=== PATIENT | female | born 1975 | race Caucasian/White ===

== ENCOUNTER 2017-01-27 10:44 | Emergency (ER) | payer OTHER ==
--- NOTE | 2017-01-27 11:44 | UC ---
Complaint Female HPI - HPI Summary HPI Summary: Patient complaining of dysuria for the past 10 days, increased urgency, starting to back pain but denies fever. - History Of Current Complaint Stated Complaint: URINARY COMPLAINT Time Seen by Provider: 01/27/17 11:39 Hx Obtained From: Patient Hx Last Menstrual Period: AUG 2008, HAD UTERINE ABLATION Onset/Duration: Sudden Onset, Lasting Days Timing: Lasting Days Severity Initially: Mild Severity Currently: Moderate Character: Dull, Burning Aggravating Factor(s): Urination Associated Signs And Symptoms: Positive: Negative - Risk Factors Ectopic Risk Factor: Negative Ovarian Torsion Risk Factor: Negative - Allergies/Home Medications Allergies/Adverse Reactions: Allergies Allergy/AdvReac Type Severity Reaction Status Date / Time Sucralfate [From Carafate] Allergy Severe anaphalactic Verified 01/27/17 11:48 reaction Oxycodone [From Percocet] Allergy Intermediate Hallucinati Verified 01/27/17 11: 48 ons Zolpidem [From Ambien] Allergy Intermediate Hallucinati Verified 01/27/17 11:48 ons Adhesive Tape Allergy Unknown Verified 01/27/17 11:48 Reaction Details Esomeprazole [From Nexium] Allergy Unknown Verified 01/27/17 11:48 Reaction Details Kiwi Extract Allergy Unknown Verified 01/27/17 11:48 Reaction Details Latex Allergy Unknown Verified 01/27/17 11:48 Reaction Details Rabeprazole [From Aciphex] Allergy Unknown Verified 01/27/17 11:48 Reaction Details [place] Allergy Unknown Verified 01/27/17 11:48 Reaction Details Sulfa Antibiotics Allergy Unknown Verified 01/27/17 11:48 Reaction Details Amitriptyline AdvReac Intermediate suicidal Verified 08/26/16 10:21 tendancies Hydrocodone [From Vicodin] AdvReac Intermediate GI Upset Verified 08/26/16 10:21 NSAIDs AdvReac none Verified 08/26/16 10:21 Tramadol AdvReac Nausea Verified 08/26/16 10:21 PMH/Surg Hx/FS Hx/Imm Hx Previously Healthy: Yes Endocrine History Of: Denies: Diabetes Cardiovascular History Of: Denies: Cardiac Disorders, Hypertension, Pacemaker/ICD Respiratory History Of: Denies: Asthma GI/ History Of: Reports: Ulcer, Gall Bladder Disease Denies: Renal Disease Neurological History Of: Reports: Migraine Psychological History Of: Reports: Anxiety, Depression, Bipolar Disorder - Surgical History Surgical History: Yes Surgery Procedure, Year, and Place: uterine ablation, gastric bypass 2006, 4 c- sections, gallbladder, right wrist surgery, tubal ligation - Family History Known Family History: Positive: Cardiac Disease, Seizure Disorder - Social History Alcohol Use: None Alcohol Amount: Sober since Nov 24 2013 Substance Use Type: None Substance Use Comment - Amount & Last Used: quit 4 weeks ago Smoking Status (MU): Former Smoker Type: Cigarettes Amount Used/How Often: 1 cigarettes/day Length of Time of Smoking/Using Tobacco: 24 yrs Have You Smoked in the Last Year: Yes When Did the Patient Quit Smoking/Using Tobacco: JANUARY 2016 Household Exposure Type: Cigarettes Review of Systems Constitutional: Negative Skin: Negative Eyes: Negative ENT: Negative Respiratory: Negative Cardiovascular: Negative Gastrointestinal: Negative Genitourinary: Dysuria, Frequency, Urgency Motor: Negative Neurovascular: Negative Musculoskeletal: Negative Neurological: Negative Psychological: Negative All Other Systems Reviewed And Are Negative: Yes Physical Exam Triage Information Reviewed: Yes Appearance: Well-Appearing, Well-Nourished, Pain Distress Vital Signs Reviewed: Yes Eye Exam: Normal Eyes: Positive: Conjunctiva Clear ENT Exam: Normal ENT: Positive: Normal ENT inspection, Hearing grossly normal, Pharynx normal, TMs normal Dental Exam: Normal Neck exam: Normal Neck: Positive: Supple, Nontender, No Lymphadenopathy Respiratory Exam: Normal Respiratory: Positive: Chest non-tender, Lungs clear, Normal breath sounds Cardiovascular Exam: Normal Cardiovascular: Positive: RRR, No Murmur, Pulses Normal Abdominal Exam: Other - lower abdominal tenderness, Abdomen Description: Positive: No Organomegaly, Soft, CVA Tenderness (R), CVA Tenderness (L) Bowel Sounds: Positive: Present Musculoskeletal Exam: Normal Musculoskeletal: Positive: Strength Intact, ROM Intact, No Edema Neurological Exam: Normal Neurological: Positive: Alert, Muscle Tone Normal Psychological Exam: Normal Skin Exam: Normal Complaint Female Dx - Course Course Of Treatment: hx obtained, exam performed, meds reviewed UA obtained, pos for nitrated and leuks, treated with keflex. - Differential Dx/Diagnosis Differential Diagnosis/HQI/PQRI: Sexually Transmitted Disease, Ureteral Stone, Urinary Tract Infection Provider Diagnoses: Hx obtained, exam performed, medications reviewed, UA pos, culture sent, treated with keflex, educated on symtpom relief. Discharge - Discharge Plan Condition: Stable Disposition: HOME Prescriptions: Cephalexin CAP* [Keflex CAP*] 500 mg PO BID #14 cap Patient Education Materials: Urinary Tract Infection in Women (ED) Referrals: Luis RICHEY,Phill Adame [Primary Care Provider] - Additional Instructions: take the medication as prescribed. Continue with increased fluid intake. You may resume your azo as needed for the next 2 days. then stop to make sure the antibiotic is treating the infection adequately. FOllow up with any worsening symptoms, fever, increased back pain.
[2017-01-27 11:53] VITALS: BP 124/76
== END 2017-01-27 12:18 | disposition home or self-care (01) ==
LOC: UCCORT 10:44
DX: N39.0 Urinary tract infection, site not specified (principal); Z88.5 Allergy status to narcotic agent; Z88.6 Allergy status to analgesic agent; Z88.2 Allergy status to sulfonamides; Z88.8 Allergy status to other drugs, medicaments and biological substances; Z87.891 Personal history of nicotine dependence
CPT/HCPCS: 87086; 99212; G0463

== ENCOUNTER 2017-03-07 14:42 | Emergency (ER) | payer OTHER ==
[2017-03-07 15:45] VITALS: BP 115/70
--- NOTE | 2017-03-07 16:36 | UC ---
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 Hx Last Menstrual Period: AUG 2008, HAD UTERINE ABLATION Onset/Duration: Gradual Onset, Lasting Weeks, Worse Since - TODAY Severity Initially: Moderate Severity Currently: Mild Pain Intensity: 0 Pain Scale Used: 0-10 Numeric Location of Injury: Conjunctiva Character: Dull Aggravating Factor(s): Nothing Alleviating Factor(s): Nothing Associated Signs And Symptoms: Positive: Drainage (Purulent) - Risk Factors Penetrating Injury Risk Factor: Negative Acute Glaucoma Risk Factors: Negative Optic Artery Occlusion Risk Factors: Negative - Allergies/Home Medications Allergies/Adverse Reactions: Allergies Allergy/AdvReac Type Severity Reaction Status Date / Time Sucralfate [From Carafate] Allergy Severe anaphalactic Verified 03/07/17 15:45 reaction Oxycodone [From Percocet] Allergy Intermediate Hallucinati Verified 03/07/17 15: 45 ons Zolpidem [From Ambien] Allergy Intermediate Hallucinati Verified 03/07/17 15:45 ons Adhesive Tape Allergy Unknown Verified 03/07/17 15:45 Reaction Details Esomeprazole [From Nexium] Allergy Unknown Verified 03/07/17 15:45 Reaction Details Kiwi Extract Allergy Unknown Verified 03/07/17 15:45 Reaction Details Latex Allergy Unknown Verified 03/07/17 15:45 Reaction Details Rabeprazole [From Aciphex] Allergy Unknown Verified 03/07/17 15:45 Reaction Details [place] Allergy Unknown Verified 03/07/17 15:45 Reaction Details Sulfa Antibiotics Allergy Unknown Verified 03/07/17 15:45 Reaction Details Amitriptyline AdvReac Intermediate suicidal Verified 03/07/17 15:45 tendancies Hydrocodone [From Vicodin] AdvReac Intermediate GI Upset Verified 03/07/17 15:45 NSAIDs AdvReac none Verified 03/07/17 15:45 Tramadol AdvReac Nausea Verified 03/07/17 15:45 Home Medications: Home Medications Acamprosate Calcium [Acamprosate Calcium Dr] 333 mg PO TID 03/07/17 [History Confirmed 03/07/17] Acyclovir TAB* [Zovirax TAB*] 400 mg PO BID 03/07/17 [History Confirmed 03/07/17 ] Artificial Tear OPHTH.OINT* [Lacrilube OINT*] 1 applic BOTH EYES Q2H 03/07/17 [ History Confirmed 03/07/17] Biotin 5,000 mcg PO BID 03/07/17 [History Confirmed 03/07/17] Bupropion XL* [Wellbutrin XL *] 150 mg PO DAILY 03/07/17 [History Confirmed ] Calcium Carbonate-Cholecalcife [Calcium 600 + D 600-200 mg-Unit] 1 tab PO DAILY 03/07/17 [History Confirmed 03/07/17] Cholecalciferol [Vitamin D] 2,000 unit PO DAILY 03/07/17 [History Confirmed ] Cyclobenzaprine TAB* [Flexeril 10 MG TAB*] 10 mg PO TID PRN 03/07/17 [History Confirmed 03/07/17] Evening [place] Oil [Evening [place] Oil 500 mg] 500 mg PO TID 03/07/17 [ History Confirmed 03/07/17] Ferrous Sulfate TAB* 325 mg PO TID 03/07/17 [History Confirmed 03/07/17] Fluticasone NASAL SPRAY 50MCG* [Flonase NASAL SPRAY 50MCG*] 2 spray BOTH NARES DAILY 03/07/17 [History Confirmed 03/07/17] Gabapentin CAP(*) [Neurontin 300 CAP(*)] 600 mg PO QID 03/07/17 [History Confirmed 03/07/17] Lactobacillus [Probiotic Acidophilus] 1 cap PO DAILY 03/07/17 [History Confirmed 03/07/17] [place] Carbonate TAB* 900 mg PO BID 03/07/17 [History Confirmed 03/07/17] Loratadine 10 mg PO BEDTIME 03/07/17 [History Confirmed 03/07/17] Meloxicam [Mobic] 15 mg PO DAILY 03/07/17 [History Confirmed 03/07/17] Metformin ER (NF) [Glucophage ER 750 MG TAB (NF)] 750 mg PO DAILY 03/07/17 [ History Confirmed 03/07/17] Methocarbamol TAB* [Robaxin TAB*] 750 mg PO TID 03/07/17 [History Confirmed ] Multivitamins/Minerals TAB* [Thera M Plus TAB*] 1 tab PO DAILY 03/07/17 [ History Confirmed 03/07/17] Paliperidone [Paliperidone ER] 3 mg PO DAILY 03/07/17 [History Confirmed ] Ranitidine HCl 150 mg PO BID 03/07/17 [History Confirmed 03/07/17] lamoTRIgine TAB(*) [LaMICtal TAB(*)] 100 mg PO BID 03/07/17 [History Confirmed 03/07/17] PMH/Surg Hx/FS Hx/Imm Hx Previously Healthy: Yes Endocrine History Of: Denies: Diabetes Cardiovascular History Of: Denies: Cardiac Disorders, Hypertension, Pacemaker/ICD Respiratory History Of: Denies: Asthma GI/ History Of: Reports: Ulcer, Gall Bladder Disease Denies: Renal Disease Neurological History Of: Reports: Migraine Psychological History Of: Reports: Anxiety, Depression, Bipolar Disorder - Surgical History Surgical History: Yes Surgery Procedure, Year, and Place: uterine ablation, gastric bypass 2006, 4 c- sections, gallbladder, right wrist surgery, tubal ligation - Family History Known Family History: Positive: Cardiac Disease, Seizure Disorder - Social History Alcohol Use: None Alcohol Amount: Sober since Nov 24 2013 Substance Use Type: None Substance Use Comment - Amount & Last Used: quit 4 weeks ago Smoking Status (MU): Heavy Every Day Tobacco Smoker Type: Cigarettes Amount Used/How Often: 7 cigs per day Length of Time of Smoking/Using Tobacco: 24 yrs Have You Smoked in the Last Year: Yes When Did the Patient Quit Smoking/Using Tobacco: JANUARY 2016 Household Exposure Type: Cigarettes Review of Systems Constitutional: Negative Skin: Negative Eyes: Negative ENT: Nasal Discharge Respiratory: Cough Cardiovascular: Negative Gastrointestinal: Negative Genitourinary: Negative Motor: Negative Neurovascular: Negative Musculoskeletal: Negative Neurological: Negative Psychological: Negative All Other Systems Reviewed And Are Negative: Yes Physical Exam Triage Information Reviewed: Yes Appearance: Well-Appearing, No Pain Distress, Well-Nourished Vital Signs: Initial Vital Signs Temp 98.7 F 03/07/17 15:42 Pulse 82 03/07/17 15:42 Resp 16 03/07/17 15:42 BP 115/70 03/07/17 15:42 Pulse Ox 100 03/07/17 15:42 Vital Signs Reviewed: Yes Eyes: Positive: Discharge ENT: Positive: Normal ENT inspection, Hearing grossly normal, Pharynx normal, Nasal congestion, TMs normal Dental Exam: Normal Neck exam: Normal Neck: Positive: Supple, Nontender, No Lymphadenopathy Respiratory Exam: Normal Respiratory: Positive: Chest non-tender, Lungs clear, Normal breath sounds, No respiratory distress, No accessory muscle use Cardiovascular Exam: Normal Cardiovascular: Positive: RRR, No Murmur, Pulses Normal Abdominal Exam: Normal Abdomen Description: Positive: Nontender, No Organomegaly Musculoskeletal Exam: Normal Musculoskeletal: Positive: Strength Intact, ROM Intact Neurological Exam: Normal Psychological Exam: Normal Psychological: Positive: Normal Response To Family Skin Exam: Normal Eye Complaint Course/Dx - Differential Dx/Diagnosis Differential Diagnosis/HQI/PQRI: Conjunctivitis, Other - SINUSITIS Provider Diagnoses: UPPER RESPIRATORY INFECTION. LEFT CONJUNCTIVITIS Discharge - Discharge Plan Condition: Stable Disposition: HOME Prescriptions: Tobramycin 0.3% OPHTH.SHANE* 1 drop LEFT EYE Q4H #1 btl Patient Education Materials: Upper Respiratory Infection (ED), Conjunctivitis ( ED) Referrals: Luis RICHEY,Phill Adame [Primary Care Provider] -
== END 2017-03-07 16:11 | disposition home or self-care (01) ==
LOC: UCCORT 14:42
DX: H10.32 Unspecified acute conjunctivitis, left eye (principal); J06.9 Acute upper respiratory infection, unspecified; F41.8 Other specified anxiety disorders; F31.9 Bipolar disorder, unspecified; Z98.84 Bariatric surgery status; Z90.49 Acquired absence of other specified parts of digestive tract; Z88.6 Allergy status to analgesic agent; Z88.5 Allergy status to narcotic agent; Z88.2 Allergy status to sulfonamides; Z87.891 Personal history of nicotine dependence
CPT/HCPCS: 99212; G0463

== ENCOUNTER 2017-09-18 19:16 | Emergency (ER) | payer MEDICARE, MEDICAID ==
[2017-09-18 19:43] VITALS: BP 110/69
[2017-09-18] MEDS: Tetan/Diph/Pertus SYR(Tdap)* 0.5 ML SYR(BOOSTRIX) use SYR IM ONE (20:07)
--- NOTE | 2017-09-18 20:23 | UC ---
Laceration HPI - HPI Summary HPI Summary: Pt present with c/o laceration to left lateral base of thumb. P t was using exacto knife and cut left thumb - History Of Current Complaint Chief Complaint: UCLaceration Stated Complaint: LEFT THUMB LAC Time Seen by Provider: 09/18/17 19:54 Hx Obtained From: Patient Hx Last Menstrual Period: 2007 Laceration Location: Finger - left lateral thumb Mechanism Of Injury: Sharp Trauma Onset/Duration: Sudden Onset Severity: Mild Aggravating Factors: Nothing - Allergies/Home Medications Allergies/Adverse Reactions: Allergies Allergy/AdvReac Type Severity Reaction Status Date / Time Sucralfate [From Carafate] Allergy Severe anaphalactic Verified 09/18/17 19:36 reaction Oxycodone [From Percocet] Allergy Intermediate Hallucinati Verified 09/18/17 19: 36 ons Zolpidem [From Ambien] Allergy Intermediate Hallucinati Verified 09/18/17 19:36 ons Adhesive Tape Allergy Unknown Verified 09/18/17 19:36 Reaction Details Esomeprazole [From Nexium] Allergy Unknown Verified 09/18/17 19:36 Reaction Details Kiwi Extract Allergy Unknown Verified 09/18/17 19:36 Reaction Details Latex Allergy Unknown Verified 09/18/17 19:36 Reaction Details Rabeprazole [From Aciphex] Allergy Unknown Verified 09/18/17 19:36 Reaction Details [place] Allergy Unknown Verified 09/18/17 19:36 Reaction Details Sulfa Antibiotics Allergy Unknown Verified 09/18/17 19:36 Reaction Details Amitriptyline AdvReac Intermediate suicidal Verified 09/18/17 19:36 tendancies Hydrocodone [From Vicodin] AdvReac Intermediate GI Upset Verified 09/18/17 19:36 NSAIDs AdvReac none Verified 09/18/17 19:36 Tramadol AdvReac Nausea Verified 09/18/17 19:36 Home Medications: Home Medications Caffeine-Magnesium Salicylate [Diurex 50-162.5 mg] 2 tab PO BID 09/18/17 [ History Confirmed 09/18/17] PMH/Surg Hx/FS Hx/Imm Hx Previously Healthy: Yes - Surgical History Surgical History: Yes Surgery Procedure, Year, and Place: uterine ablation, gastric bypass 2006, 4 c- sections, gallbladder, right wrist surgery, tubal ligation - Family History Known Family History: Positive: Cardiac Disease, Seizure Disorder - Social History Occupation: Employed Full-time Lives: With Family Alcohol Use: None Alcohol Amount: Sober since Nov 24 2013 Substance Use Type: Cocaine Substance Use Comment - Amount & Last Used: "quit" last used 08/27/17 Smoking Status (MU): Heavy Every Day Tobacco Smoker Type: Cigarettes Amount Used/How Often: 1 PPD Length of Time of Smoking/Using Tobacco: Since Age 14 Have You Smoked in the Last Year: Yes When Did the Patient Quit Smoking/Using Tobacco: JANUARY 2016 Household Exposure Type: Cigarettes - Immunization History Most Recent Influenza Vaccination: Not the Season Most Recent Tetanus Shot: "I don't remember." Review of Systems Constitutional: Negative Skin: Other - laceration left lateral thumb Eyes: Negative ENT: Negative Respiratory: Negative Cardiovascular: Negative Gastrointestinal: Negative Genitourinary: Negative Motor: Negative Neurovascular: Negative Musculoskeletal: Negative Neurological: Negative Psychological: Negative Is Patient Immunocompromised?: No All Other Systems Reviewed And Are Negative: Yes Physical Exam Triage Information Reviewed: Yes Appearance: Well-Appearing Vital Signs: Initial Vital Signs Temp 97.7 F 09/18/17 19:35 Pulse 92 09/18/17 19:35 Resp 16 09/18/17 19:35 BP 110/69 09/18/17 19:35 Pulse Ox 100 09/18/17 19:35 Eye Exam: Normal ENT Exam: Normal Neck exam: Normal Respiratory Exam: Normal Cardiovascular Exam: Normal Musculoskeletal Exam: Normal Neurological Exam: Normal Psychological Exam: Normal Skin Exam: Other - laceration, bleeding stopped in left lateral thumb Laceration Course/Dx - Course/Dx Course Of Treatment: I offered to repair laceration with skin adhesive and pt refused. - Differential Dx - Laceration/Wound Differental Diagnoses: Laceration Provider Diagnoses: laceration, no suturing needed Discharge - Discharge Plan Condition: Stable Disposition: HOME Patient Education Materials: Laceration (ED) Referrals: Luis RICHEY,Phill Adame [Primary Care Provider] - If Needed
== END 2017-09-18 20:37 | disposition home or self-care (01) ==
LOC: UCCORT 19:16
DX: S61.012A Laceration without foreign body of left thumb without damage to nail, initial encounter (principal); W26.0XXA Contact with knife, initial encounter; Z91.048 Other nonmedicinal substance allergy status; Z88.8 Allergy status to other drugs, medicaments and biological substances; Z88.2 Allergy status to sulfonamides; Z88.6 Allergy status to analgesic agent; Z91.040 Latex allergy status
CPT/HCPCS: 90471; 90715; 99212; G0463

== ENCOUNTER 2017-10-18 20:05 | Emergency (ER) | payer MEDICARE, MEDICAID ==
--- NOTE | 2017-10-18 20:15 | UC ---
Upper Extremity HPI - HPI Summary HPI Summary: 42 year old female presents with complains of right hand pain after she punched a wall 2 weeks ago. - History of Current Complaint Stated Complaint: RIGHT HAND INJURY Time Seen by Provider: 10/18/17 20:14 Hx Obtained From: Patient Hx Last Menstrual Period: 2007 Onset/Duration: Sudden Onset Severity Initially: Moderate Severity Currently: Moderate Pain Scale Used: 0-10 Numeric - 7 Character: Sharp, Throbbing Aggravating Factor(s): Movement, Lifting, Flexion, Extension - Allergies/Home Medications Allergies/Adverse Reactions: Allergies Allergy/AdvReac Type Severity Reaction Status Date / Time Sucralfate [From Carafate] Allergy Severe anaphalactic Verified 10/18/17 20:33 reaction Oxycodone [From Percocet] Allergy Intermediate Hallucinati Verified 10/18/17 20: 33 ons Zolpidem [From Ambien] Allergy Intermediate Hallucinati Verified 10/18/17 20:33 ons Adhesive Tape Allergy Unknown Verified 10/18/17 20:33 Reaction Details Esomeprazole [From Nexium] Allergy Unknown Verified 10/18/17 20:33 Reaction Details Kiwi Extract Allergy Unknown Verified 10/18/17 20:33 Reaction Details Latex Allergy Unknown Verified 10/18/17 20:33 Reaction Details Rabeprazole [From Aciphex] Allergy Unknown Verified 10/18/17 20:33 Reaction Details [place] Allergy Unknown Verified 10/18/17 20:33 Reaction Details Sulfa Antibiotics Allergy Unknown Verified 10/18/17 20:33 Reaction Details Amitriptyline AdvReac Intermediate suicidal Verified 10/18/17 20:33 tendancies Hydrocodone [From Vicodin] AdvReac Intermediate GI Upset Verified 10/18/17 20:33 NSAIDs AdvReac none Verified 10/18/17 20:33 Tramadol AdvReac Nausea Verified 10/18/17 20:33 Home Medications: Home Medications Ondansetron TAB* [Zofran 4 MG Tab*] 4 mg PO Q6H PRN 10/18/17 [History Confirmed 10/18/17] clonazePAM TAB(*) [KlonoPIN TAB(*)] 1 mg PO BID 10/18/17 [History Confirmed ] PMH/Surg Hx/FS Hx/Imm Hx Previously Healthy: Yes - Surgical History Surgical History: Yes Surgery Procedure, Year, and Place: uterine ablation, gastric bypass 2006, 4 c- sections, gallbladder, right wrist surgery, tubal ligation - Family History Known Family History: Positive: Cardiac Disease, Seizure Disorder - Social History Alcohol Use: None Alcohol Amount: Sober since Nov 24 2013 Substance Use Type: Cocaine Substance Use Comment - Amount & Last Used: "quit" last used 08/27/17 Smoking Status (MU): Heavy Every Day Tobacco Smoker Type: Cigarettes Amount Used/How Often: 1 PPD Length of Time of Smoking/Using Tobacco: Since Age 14 Have You Smoked in the Last Year: Yes When Did the Patient Quit Smoking/Using Tobacco: JANUARY 2016 Household Exposure Type: Cigarettes - Immunization History Most Recent Influenza Vaccination: Not the 2016/2017 Season Most Recent Tetanus Shot: "I don't remember." Review of Systems Constitutional: Negative Skin: Negative Eyes: Negative ENT: Negative Respiratory: Negative Cardiovascular: Negative Gastrointestinal: Negative Genitourinary: Negative Motor: Negative Neurovascular: Negative Musculoskeletal: Other: - right hand sprain right 5th metacarpal pain Neurological: Negative Psychological: Negative All Other Systems Reviewed And Are Negative: Yes Physical Exam Triage Information Reviewed: Yes Vital Signs Reviewed: Yes Eye Exam: Normal ENT Exam: Normal Dental Exam: Normal Neck exam: Normal Neck: Positive: 1 Respiratory Exam: Normal Cardiovascular Exam: Normal Abdominal Exam: Normal Bowel Sounds: Positive: Present Musculoskeletal: Positive: Other: - right 5th metacarpal pain right hand sprain Neurological Exam: Normal Psychological Exam: Normal Skin Exam: Normal Upper Extremity Course/Dx - Differential Dx/Diagnosis Provider Diagnoses: right hand sprain/contusion. right 5th metacarpal pain Discharge - Discharge Plan Condition: Stable Disposition: HOME Patient Education Materials: Hand Sprain (ED), Contusion in Adults (ED) Referrals: Phill Sloan [Primary Care Provider] -
[2017-10-18 20:33] VITALS: BP 117/80
--- NOTE | 2017-10-18 20:50 | RAD ---
INDICATION: Right hand injury. TECHNIQUE: 4 views of the right hand were obtained. FINDINGS: The bones are in normal alignment. No fracture is seen. Joint spaces appear maintained. IMPRESSION: NO EVIDENCE FOR FRACTURE.
== END 2017-10-18 21:00 | disposition home or self-care (01) ==
LOC: UCCORT 20:05
DX: S63.91XA Sprain of unspecified part of right wrist and hand, initial encounter (principal); W22.09XA Striking against other stationary object, initial encounter; Y92.9 Unspecified place or not applicable; Z88.8 Allergy status to other drugs, medicaments and biological substances; Z88.5 Allergy status to narcotic agent; Z88.2 Allergy status to sulfonamides; Z88.6 Allergy status to analgesic agent
CPT/HCPCS: 99213; G0463

== ENCOUNTER 2017-12-31 12:44 | Emergency (ER) | payer MEDICARE, MEDICAID | END 2017-12-31 14:54 | disposition left against medical advice (07) | LOC: UCCORT 12:44 | DX: R53.83 Other fatigue (principal); Z53.21 Procedure and treatment not carried out due to patient leaving prior to being seen by health care provider ==

== ENCOUNTER 2018-01-04 10:46 | Emergency (ER) | payer MEDICARE, MEDICAID | END 2018-01-04 14:31 | disposition left against medical advice (07) | LOC: UCCORT 10:46 | DX: R11.0 Nausea (principal); R52 Pain, unspecified; Z53.21 Procedure and treatment not carried out due to patient leaving prior to being seen by health care provider ==

== ENCOUNTER 2018-01-07 18:41 | Emergency (ER) | payer MEDICARE, MEDICAID | END 2018-01-07 21:03 | disposition left against medical advice (07) | LOC: UCCORT 18:41 | DX: R11.2 Nausea with vomiting, unspecified (principal); Z53.21 Procedure and treatment not carried out due to patient leaving prior to being seen by health care provider ==

== ENCOUNTER 2018-01-08 09:29 | Emergency (ER) | payer MEDICARE, MEDICAID ==
[2018-01-08 11:00] VITALS: BP 110/71
--- NOTE | 2018-01-08 11:48 | UC ---
Abdominal Pain Female HPI - HPI Summary HPI Summary: abdominal pain x 10 days + nausea and vomiting fever, chills , body aches no cough , no runny nose, no sore throat no urinary sx - History of Current Complaint Chief Complaint: UCGeneralIllness Stated Complaint: FEVER, NAUSEA Time Seen by Provider: 01/08/18 10:44 Hx Obtained From: Patient Hx Last Menstrual Period: 2007 ?: No Onset/Duration: Gradual Onset, Lasting Days - 10, Still Present Timing: Constant Severity Initially: Moderate Severity Currently: Moderate Pain Intensity: 6 Pain Scale Used: 0-10 Numeric Location: Diffuse Radiates: No Character: Cramping Aggravating Factor(s): Food Alleviating Factor(s): Vomiting Associated Signs and Symptoms: Positive: Nausea, Vomiting, Diarrhea Allergies/Adverse Reactions: Allergies Allergy/AdvReac Type Severity Reaction Status Date / Time Adhesive Tape Allergy Unknown Verified 10/18/17 20:33 Reaction Details amitriptyline Allergy Altered Verified 01/08/18 11:06 Mental Status esomeprazole Allergy Unknown Verified 01/08/18 11:06 Reaction Details hydrocodone Allergy GI Upset Verified 01/08/18 11:06 kiwi Allergy Unknown Verified 01/08/18 11:06 Reaction Details NSAIDS (Non-Steroidal Allergy Unknown Verified 01/08/18 11:06 Anti-Inflamma Reaction Details oxycodone Allergy Hallucinati Verified 01/08/18 11:06 ons rabeprazole Allergy Unknown Verified 01/08/18 11:06 Reaction Details strawberry Allergy Unknown Verified 01/08/18 11:06 Reaction Details sucralfate [From Carafate] Allergy Anaphylatic Verified 01/08/18 11:06 Shock Sulfa (Sulfonamide Allergy Unknown Verified 01/08/18 11:06 Antibiotics) Reaction Details tramadol Allergy Nausea Verified 01/08/18 11:06 zolpidem [From Ambien] Allergy Hallucinati Verified 01/08/18 11:06 ons Home Medications: Home Medications Magnesium Salicylate/Caffeine [Diurex 50-162.5 mg] 1 tab PO DAILY 01/08/18 [ History Confirmed 01/08/18] PMH/Surg Hx/FS Hx/Imm Hx - Additional Past Medical History Additional PMH: Anemia, Anxiety, Bipolar, Chronic Pain, Depression, GERD, HSV, migraines - Surgical History Surgical History: Yes Surgery Procedure, Year, and Place: uterine ablation, gastric bypass 2006, 4 c- sections, gallbladder, right wrist surgery, tubal ligation - Family History Known Family History: Positive: Cardiac Disease, Seizure Disorder - Social History Alcohol Use: None Alcohol Amount: Sober since Nov 24 2013 Substance Use Type: Cocaine Substance Use Comment - Amount & Last Used: "quit" last used 08/27/17 Smoking Status (MU): Heavy Every Day Tobacco Smoker Type: Cigarettes Amount Used/How Often: 1 PPD Length of Time of Smoking/Using Tobacco: Since Age 14 Have You Smoked in the Last Year: Yes When Did the Patient Quit Smoking/Using Tobacco: JANUARY 2016 Household Exposure Type: Cigarettes - Immunization History Most Recent Influenza Vaccination: Not the 2016/2017 Season Most Recent Tetanus Shot: "I don't remember." Review of Systems Constitutional: Negative Skin: Negative Eyes: Negative ENT: Negative Respiratory: Negative Gastrointestinal: Abdominal Pain, Vomiting, Nausea Is Patient Immunocompromised?: No All Other Systems Reviewed And Are Negative: Yes Physical Exam Triage Information Reviewed: Yes Appearance: Well-Appearing, No Pain Distress, Well-Nourished Vital Signs: Initial Vital Signs Temp 98.2 F 01/08/18 10:51 Pulse 91 01/08/18 10:51 Resp 16 01/08/18 10:51 BP 110/71 01/08/18 10:51 Pulse Ox 99 01/08/18 10:51 Vital Signs Reviewed: Yes Eye Exam: Normal Eyes: Positive: Conjunctiva Clear ENT: Positive: Normal ENT inspection, Hearing grossly normal, Pharynx normal, TMs normal Neck: Positive: Supple, Nontender, No Lymphadenopathy Respiratory: Positive: Chest non-tender, Lungs clear, Normal breath sounds Cardiovascular: Positive: RRR, No Murmur, Pulses Normal Abdomen Description: Positive: Nontender, Soft. Negative: CVA Tenderness (R), CVA Tenderness (L), Distended, Guarding Bowel Sounds: Positive: Present Abd Pain Female Course/Dx - Differential Dx/Diagnosis Provider Diagnoses: Gastroenteritis Discharge - Discharge Plan Condition: Stable Disposition: HOME Prescriptions: Ondansetron [Zofran Odt] 8 mg PO Q8H #6 tab.rapdis Patient Education Materials: Gastroenteritis (DC) Forms: *Gen. Provider Communication Referrals: Luis RICHEY,Phill Adame [Primary Care Provider] - If Needed Additional Instructions: stomach virus cont. with rest , increase fluid, take Tylenol as needed for pain or fever Zofran as needed for nausea or vomiting
== END 2018-01-08 11:36 | disposition home or self-care (01) ==
LOC: UCCORT 09:29
DX: K52.9 Noninfective gastroenteritis and colitis, unspecified (principal)
CPT/HCPCS: 99212; G0463

== ENCOUNTER 2018-02-12 13:12 | Emergency (ER) | payer MEDICARE, MEDICAID ==
[2018-02-12 13:45] VITALS: BP 103/64
--- NOTE | 2018-02-12 14:28 | UC ---
Back Pain HPI - HPI Summary HPI Summary: 42 year old female with back pain She has had chronic back pain and in the past has seen Neuro Surgery and PM&R in [place]. . WAS LIFTING SOMETHING YESTERDAY at her friends which was a stroller AND FELT A POP IN HER LOW BACK, PAIN HAS PROGRESSIVELY GOTTEN WORSE. Had numbness in her left leg last night and today complete weakness, foot dragging on the floor and 9 or 10 /10 pain . Needed 2 people to get her in to a chair at home. [ End ] - History of Current Complaint Chief Complaint: UCBackPain Stated Complaint: LOWER BACK PAIN Time Seen by Provider: 02/12/18 14:21 Hx Obtained From: Patient Hx Last Menstrual Period: 2007 Onset/Duration: Sudden Onset Severity Initially: Moderate Severity Currently: Severe Pain Intensity: 9 Associated Signs And Symptoms: Positive: Weakness, Numbness, Tingling, Pain with Weight Bearing. Negative: Bladder Incontinence, Bowel Incontinence Related History: Previous Back Injury - Risk Factors Cauda Equina Risk Factors: Lower Extemity Numbness, Lower Extremity Weakness - Allergies/Home Medications Allergies/Adverse Reactions: Allergies Allergy/AdvReac Type Severity Reaction Status Date / Time Adhesive Tape Allergy Unknown Verified 10/18/17 20:33 Reaction Details amitriptyline Allergy Altered Verified 01/08/18 11:06 Mental Status esomeprazole Allergy Unknown Verified 01/08/18 11:06 Reaction Details hydrocodone Allergy GI Upset Verified 01/08/18 11:06 kiwi Allergy Unknown Verified 01/08/18 11:06 Reaction Details NSAIDS (Non-Steroidal Allergy Unknown Verified 01/08/18 11:06 Anti-Inflamma Reaction Details oxycodone Allergy Hallucinati Verified 01/08/18 11:06 ons rabeprazole Allergy Unknown Verified 01/08/18 11:06 Reaction Details strawberry Allergy Unknown Verified 01/08/18 11:06 Reaction Details sucralfate [From Carafate] Allergy Anaphylatic Verified 01/08/18 11:06 Shock Sulfa (Sulfonamide Allergy Unknown Verified 01/08/18 11:06 Antibiotics) Reaction Details tramadol Allergy Nausea Verified 01/08/18 11:06 zolpidem [From Ambien] Allergy Hallucinati Verified 01/08/18 11:06 ons PMH/Surg Hx/FS Hx/Imm Hx Previously Healthy: Yes GI/ History: Gastroesophageal Reflux Psychological History: Anxiety - Surgical History Surgical History: Yes Surgery Procedure, Year, and Place: uterine ablation, gastric bypass 2006, 4 c- sections, gallbladder, right wrist surgery, tubal ligation - Family History Known Family History: Positive: Cardiac Disease, Seizure Disorder - Social History Alcohol Use: None Alcohol Amount: Sober since Nov 24 2013 Substance Use Type: Cocaine Substance Use Comment - Amount & Last Used: "quit" last used 08/27/17 Smoking Status (MU): Heavy Every Day Tobacco Smoker Type: Cigarettes Amount Used/How Often: 1 PPD Length of Time of Smoking/Using Tobacco: Since Age 14 Have You Smoked in the Last Year: Yes When Did the Patient Quit Smoking/Using Tobacco: JANUARY 2016 Household Exposure Type: Cigarettes - Immunization History Most Recent Influenza Vaccination: Not the Season Most Recent Tetanus Shot: "I don't remember." Review of Systems Constitutional: Negative Musculoskeletal: Arthralgia, Decreased ROM Neurological: Weakness, Paresthesia, Numbness Is Patient Immunocompromised?: No All Other Systems Reviewed And Are Negative: Yes Physical Exam Triage Information Reviewed: Yes Appearance: Well-Appearing, Well-Nourished, Pain Distress - modereate to severe Vital Signs: Initial Vital Signs Temp 98.2 F 02/12/18 13:34 Pulse 96 02/12/18 13:34 Resp 20 02/12/18 13:34 BP 103/64 02/12/18 13:34 Pulse Ox 100 02/12/18 13:34 Vital Signs Reviewed: Yes Eye Exam: Normal Respiratory Exam: Normal Musculoskeletal: Positive: Strength Limited @, ROM Limited @ Neurological: Positive: Other: - strength left lower extremity strenth 1/5. could not raise toes. any slight movelemt elicited extreme pain. can not move leg. in wheel chair. decreased patellar reflex on left. sensation intact. no edema Psychological Exam: Normal Skin Exam: Normal Back Pain Course/Dx - Course Course Of Treatment: Go to ED. Needs to go to place with neurosx so not [facility]. per guidelines would need to go to [facility] and thqt is [facility] but she declined [facility] and wanrs to go to [facility] . signed AMA and also very anxious about ambulances and will go not by ambulance. sister will bring her to [facility]. Spoke with Rebecca and they do have neuro Sx available - Differential Dx/Diagnosis Differential Diagnosis/HQI/PQRI: Cauda Equina Syndrome, Compressive Cord Syndrome, Herniated Disc, Strain, Sprain Provider Diagnoses: back pain Discharge - Sign-Out/Discharge Documenting (check all that apply): Discharge - Discharge Plan Condition: Guarded Disposition: AGAINST MEDICAL ADVICE Patient Education Materials: Lumbar Radiculopathy (ED) Referrals: Luis RICHEY,Phill Adame [Primary Care Provider] - Additional Instructions: Please go directly to the emergency room for further evaluation. You have declined ambulance. The ER at [facility] is witing for you . You may have cauda equina syndrome and may need emergent surgery pending your work up. - Billing Disposition and Condition Condition: GUARDED Disposition: AMA
[2018-02-12] MEDS ORDERED: HYDROcodone/ACETAMIN 5-325 MG* 1 TAB PO ONE (14:40)
== END 2018-02-12 15:07 | disposition left against medical advice (07) ==
LOC: UCCORT 13:12
DX: M54.5 Low back pain (principal); X50.0XXA Overexertion from strenuous movement or load, initial encounter; Y93.89 Activity, other specified; Y92.9 Unspecified place or not applicable; Z88.8 Allergy status to other drugs, medicaments and biological substances; Z88.2 Allergy status to sulfonamides; Z91.018 Allergy to other foods; F17.210 Nicotine dependence, cigarettes, uncomplicated
CPT/HCPCS: 99212; G0463

== ENCOUNTER 2018-02-12 16:34 | Emergency (ER) | payer MEDICARE, MEDICAID ==
[2018-02-12] MEDS ORDERED: Diazepam SYRINGE* 5 MG/ML 2 ML SYRINGE (10 MG total) IV ONE (18:20)
[2018-02-12] MEDS ORDERED: Ketorolac INJ* 30 MG/ML 1 ML VIAL IV PUSH ONE (18:20)
--- NOTE | 2018-02-12 18:58 | ED ---
Back Pain - HPI Summary HPI Summary: 42-year-old female presents with back pain since yesterday. Patient states she was lifting a stroller and felt a pop in the lower back. She states the pain has gotten progressively worse. She has developed numbness in her left leg that is new. He states she has developed weakness of her left leg that is new. She states pain is greatest on the left side of her back. She denies any numbness or tingling in her pelvis. She denies any loss of bowel or bladder. She states she is not able to ambulate or move her leg due to the pain and weakness. Pain is in time 10. She is tried [id number] pain medication without relief. She has history of chronic back pain but it is never had them this bad. She denies any fevers or IV drug use. She has been using a cane at home to walk and is unable to lift her foot to walk. Her foot has been dragging on the floor. - History of Current Complaint Chief Complaint: Ramón Stated Complaint: BACK PAIN Time Seen by Provider: 02/12/18 18:11 Hx Last Menstrual Period: 2007 Pain Intensity: 9 - Allergies/Home Medications Allergies/Adverse Reactions: Allergies Allergy/AdvReac Type Severity Reaction Status Date / Time Adhesive Tape Allergy Unknown Verified 10/18/17 20:33 Reaction Details amitriptyline Allergy Altered Verified 01/08/18 11:06 Mental Status esomeprazole Allergy Unknown Verified 01/08/18 11:06 Reaction Details hydrocodone Allergy GI Upset Verified 01/08/18 11:06 kiwi Allergy Unknown Verified 01/08/18 11:06 Reaction Details NSAIDS (Non-Steroidal Allergy Unknown Verified 01/08/18 11:06 Anti-Inflamma Reaction Details oxycodone Allergy Hallucinati Verified 01/08/18 11:06 ons rabeprazole Allergy Unknown Verified 01/08/18 11:06 Reaction Details strawberry Allergy Unknown Verified 01/08/18 11:06 Reaction Details sucralfate [From Carafate] Allergy Anaphylatic Verified 01/08/18 11:06 Shock Sulfa (Sulfonamide Allergy Unknown Verified 01/08/18 11:06 Antibiotics) Reaction Details tramadol Allergy Nausea Verified 01/08/18 11:06 zolpidem [From Ambien] Allergy Hallucinati Verified 01/08/18 11:06 ons PMH/Surg Hx/FS Hx/Imm Hx Endocrine/Hematology History: Reports: Hx Anemia Denies: Hx Diabetes Cardiovascular History: Denies: Hx Hypertension, Hx Pacemaker/ICD Respiratory History: Reports: Hx Chronic Bronchitis Denies: Hx Asthma GI History: Reports: Hx Gall Bladder Disease, Hx Gastroesophageal Reflux Disease , Hx Ulcer History: Denies: Hx Renal Disease Musculoskeletal History: Reports: Hx Back Problems Sensory History: Reports: Hx Contacts or Glasses Denies: Hx Hearing Aid Opthamlomology History: Reports: Hx Contacts or Glasses Neurological History: Reports: Hx Migraine Psychiatric History: Reports: Hx Anxiety, Hx Depression, Hx Bipolar Disorder Denies: Hx Panic Disorder - Cancer History Cancer Type, Location and Year: squamous cell rt arm in 2008 treated - Surgical History Surgery Procedure, Year, and Place: uterine ablation, gastric bypass 2006, c- sections, gallbladder, right wrist surgery, tubal ligation Infectious Disease History: No Infectious Disease History: Denies: Traveled Outside the [place] in Last 30 Days - Family History Known Family History: Positive: Cardiac Disease, Seizure Disorder - Social History Alcohol Use: None Alcohol Amount: Sober since Nov 24 2013 Substance Use Type: Reports: Cocaine Substance Use Comment - Amount & Last Used: "quit" last used 08/27/17 Smoking Status (MU): Heavy Every Day Tobacco Smoker Type: Cigarettes Amount Used/How Often: 1 PPD Length of Time of Smoking/Using Tobacco: Since Age 14 Have You Smoked in the Last Year: Yes Review of Systems Negative: Fever Negative: Chest Pain Negative: Shortness Of Breath Positive: Myalgia - back pain, Other - left leg weakness All Other Systems Reviewed And Are Negative: Yes Physical Exam Triage Information Reviewed: Yes Vital Signs On Initial Exam: Initial Vitals Temp Pulse Resp BP Pulse Ox 97.9 F 89 20 128/72 98 02/12/18 16:49 02/12/18 16:49 02/12/18 16:49 02/12/18 16:49 02/12/18 16:49 Vital Signs Reviewed: Yes Appearance: Positive: Well-Appearing Skin: Positive: Warm, Dry Head/Face: Positive: Normal Head/Face Inspection Eyes: Positive: Normal, Conjunctiva Clear Respiratory/Lung Sounds: Positive: Clear to Auscultation, Breath Sounds Present Cardiovascular: Positive: Normal, RRR Abdomen Description: Positive: Nontender, Soft Bowel Sounds: Positive: Present Musculoskeletal: Positive: Limited @ - back, Other - tenderness L1-L5, tenderness greatest over SI joint, sensation present in left leg but decreased, good pulses, decreased strength in left leg, strength decreased most with plantar flexion of left foot Neurological: Positive: Reflexes Intact - patella decrease left. Negative: Babinski Left - neg Psychiatric: Positive: Normal Diagnostics - Vital Signs Vital Signs Temp Pulse Resp BP Pulse Ox 02/12/18 16:49 97.9 F 89 20 128/72 98 - Laboratory Lab Statement: Any lab studies that have been ordered have been reviewed, and results considered in the medical decision making process. - CT lumbar CT Interpretation: No Acute Changes - IMPRESSION: 1. DEGENERATIVE DISC DISEASE MOST PRONOUNCED AT L4-L5 AND L5-S1. 2. THERE IS A PARTIALLY CALCIFIED DISC PROTRUSION AT L4-L5 SIMILAR TO THE PREVIOUS MRI EXAMINATION, ACCOUNTING FOR DIFFERENCES IN TECHNIQUE. 3. THERE IS A LEFT-SIDED SUPERIOR DISC EXTRUSION AT L5 -S1 THAT APPEARS TO HAVE PROGRESSED FROM THE PREVIOUS MRI EXAMINATION, ACCOUNTING FOR DIFFERENCES IN TECHNIQUE. 4. THERE IS MILD NARROWING OF THE CENTRAL CANAL AT L4-L5 AND L5-S1. 5. THERE IS NEURAL FORAMINAL NARROWING AT L4- L5 AND L5-S1. CT Interpretation Completed By: Radiologist - Additional Comments Diagnostic Additional Comments: IMPRESSION: 1. LIMITED STUDY. 2. DEGENERATIVE DISC DISEASE AND OSTEOARTHRITIS MOST PRONOUNCED AT L4-L5 AND L5- S1. 3. THERE ARE LEFT-SIDED DISC EXTRUSION IS L4-L5 AND L5-S1, WITH MASS EFFECT UPON THE DESCENDING NERVE ROOTS, WITH MILD PROGRESSION COMPARED TO THE 2016 EXAMINATION. THE EXTRUDED COMPONENT NOTED ON CT AT L5-S1 IS NOT WELL APPRECIATED ON THE CURRENT EXAMINATION AND IS LIKELY ARTIFACTUAL. Re-Evaluation - Re-Evaluation First Eval Re-Evaluation Time: 21:25 Change: Improved Comment: feeling better after valium and toradol Second Eval Re-Evaluation Time: 00:08 Change: Improved Comment: wants to go home, pain in better control Back Pain Course/Dx - Course Course Of Treatment: 42-year-old female presents with back pain since yesterday, . Patient states she was lifting a stroller and felt a pop in the lower back. She states the pain is cramp progressively worse. She has developed numbness in her left leg. He states she has developed weakness of her left leg. She states pain is greatest on the left side of her back. She denies any numbness or tingling in her pelvis. She denies any loss of bowel or bladder. She states she is not able to ambulate or move her leg due to the pain and weakness. Pain is in time 10. She is tried [id number] pain medication without relief. She has history of chronic back pain but it is never had them this bad. She denies any fevers or IV drug use. On exam tenderness lower back. Tenderness greatest in her SI joint. sensation grossly intact but is diminished on the left side. Babinski's negative. dimished patella reflex left. weakness greatest with planatar flexion of foot. CT shows worsening of protrusion. Will get MRI due to weakness of the leg. MRI shows left sided disc extrusion is l4-L5 and L5-S1 with mass effect upon descending nerve foot. discussed case with dr link and states that will see in office tomorrow or have admitted for pain control and will consult. discussed with patient and wants to go home. friend will take care of patient at home until can follow up tomorrow. will give short course of pain medication. patient understand and agrees with plan. - Diagnoses Differential Diagnosis/HQI/PQRI: Positive: Cauda Equina Syndrome, Herniated Disc , Strain, Sprain Provider Diagnoses: Back pain, Lumbar radiculopathy Discharge - Sign-Out/Discharge Documenting (check all that apply): Discharge - Discharge Plan Condition: Good Disposition: HOME Prescriptions: Lidocaine PATCH 5%* [Lidoderm 5% Patch*] 1 patch TRANSDERM DAILY #6 patch Methocarbamol TAB* [Robaxin 500 MG TAB*] 750 mg PO TID PRN #15 tab PRN Reason: Pain Ondansetron TAB* [Zofran 4 MG Tab*] 4 mg PO Q6H PRN #12 tab PRN Reason: Nausea oxyCODONE/Acetamin 5/325 MG* [Percocet 5/325 TAB*] 1 tab PO Q6H PRN #12 tab MDD 4 PRN Reason: Pain Patient Education Materials: Lumbar Radiculopathy (ED) Forms: *Gen. Provider Communication Referrals: Luis RICHEY,Phill Adame [Primary Care Provider] - Mariya Spencer MD [Medical Doctor] - Additional Instructions: Call neurosurgeon office tomorrow to set up appointment for tomorrow afternoon Take muscle relaxers three times a day Apply lidocaine patches to area for up to 12 hours in one 24 hour period Use ibuprofen or Tylenol for pain every 6 hours, use narcotic for break through pain every 6 hours but caution as this will cause constipation and make the back pain worst ice/heat area, move as much as possible Return to ED if develop any new or worsening symptoms - Billing Disposition and Condition Condition: GOOD Disposition: HOME
[2018-02-12] MEDS ORDERED: Diazepam INJ (NF) 5 MG/ML 10 ML VIAL (50 MG TOTAL) IV ONE (19:00)
--- NOTE | 2018-02-12 20:38 | RAD ---
HISTORY: Back pain, left leg pain COMPARISONS: MRI of the lumbar spine dated July 04, 2016 TECHNIQUE: Multiple contiguous axial CT scans were obtained of the lumbar spine without intravenous contrast, with coronal and sagittal multiplanar reformations. FINDINGS: SPINAL CANAL: Evaluation of the central canal is limited on CT technique; however, there is no obvious canalicular mass or epidural hemorrhage. ALIGNMENT: The alignment is normal. VERTEBRAL BODIES: Schmorl's nodes are noted along the lower thoracic spine. The vertebral bodies are preserved in height. JOINTS: There is no subluxation or dislocation. MUSCULATURE: Unremarkable INTERVERTEBRAL DISCS: There is mild diffuse loss of intervertebral disc height throughout the spine. AXIAL IMAGES: T12-L1: There is no osseous neural foraminal narrowing or central canal stenosis. L1-L2: There is no osseous neural foraminal narrowing or central canal stenosis. L2-L3: There is no osseous neural foraminal narrowing or central canal stenosis. L3-L4: There is no osseous neural foraminal narrowing or central canal stenosis. L4-L5: There is partially calcified central disc protrusion measuring 2.4 cm in depth. This appears similar to the July 04, 2016 examination. There is ligamentous hypertrophy. There is mild bilateral neuroforaminal narrowing. There is mild narrowing of the central canal. L5-S1: There is a broad-based central and left paracentral superior disc extrusion at L5-S1. This appears to be increased in size compared to the previous examination. There is moderate left neuroforaminal narrowing. There is mild narrowing of the central canal. SOFT TISSUES: The visualized soft tissues of the abdomen are unremarkable. OTHER: None IMPRESSION: 1. DEGENERATIVE DISC DISEASE MOST PRONOUNCED AT L4-L5 AND L5-S1. 2. THERE IS A PARTIALLY CALCIFIED DISC PROTRUSION AT L4-L5 SIMILAR TO THE PREVIOUS MRI EXAMINATION, ACCOUNTING FOR DIFFERENCES IN TECHNIQUE. 3. THERE IS A LEFT-SIDED SUPERIOR DISC EXTRUSION AT L5-S1 THAT APPEARS TO HAVE PROGRESSED FROM THE PREVIOUS MRI EXAMINATION, ACCOUNTING FOR DIFFERENCES IN TECHNIQUE. 4. THERE IS MILD NARROWING OF THE CENTRAL CANAL AT L4-L5 AND L5-S1. 5. THERE IS NEURAL FORAMINAL NARROWING AT L4-L5 AND L5-S1.
[2018-02-12] MEDS ORDERED: Dexamethasone IV* 4 MG/ML 1 ML (4 MG) IV SLOW PU ONE (21:05)
--- NOTE | 2018-02-12 21:53 | RAD ---
HISTORY: Back pain, unable to lift left leg COMPARISONS: CT dated February 12, 2015, MRI dated July 04, 2016 TECHNIQUE: The following sequences were obtained of the lumbar spine: Sagittal and axial T1- and T2-weighted images, coronal T2-weighted images, and sagittal STIR images. FINDINGS: The study is limited by patient motion artifact. SPINAL CORD, CONUS, AND CAUDA EQUINA: The visualized spinal cord, conus, and cauda equina are normal in caliber, position, and signal intensity. ALIGNMENT: The alignment is normal. VERTEBRAL BODIES: The bones are normal in signal intensity. JOINTS: There is mild facet hypertrophic change along the lower lumbar spine MUSCULATURE: Unremarkable INTERVERTEBRAL DISCS: There is loss of intervertebral disc height and T2 signal at L4-L5 and L5-S1. AXIAL IMAGES: L3-L4: There is no disc herniation, spinal stenosis, or neuroforaminal narrowing. L4-L5: There is broad-based disc bulge that is eccentric to the left with a superimposed left paracentral disc protrusion measuring 0.4 cm in depth, corresponding to the finding noted on previous CT and MRI. This is slightly decreased in size compared to the previous MRI. This abuts the descending left L5 nerve root with mild posterior displacement. There is mild left neural foraminal narrowing. There is no significant central canal stenosis. L5-S1: There is a broad-based left lateral recess at foraminal disc protrusion measuring 0.5 cm in depth. There is bilateral facet hypertrophy. There is moderate left and mild right neural foraminal narrowing. There is mild narrowing of the central canal. This abuts and slightly displaces the descending left S1 nerve root. The extruded component noted on CT is not well evaluated on the current examination and is likely an artifact. There is been mild progression compared to the 2016 examination. SOFT TISSUES: The visualized soft tissues of the abdomen are unremarkable. OTHER: None. IMPRESSION: 1. LIMITED STUDY. 2. DEGENERATIVE DISC DISEASE AND OSTEOARTHRITIS MOST PRONOUNCED AT L4-L5 AND L5-S1. 3. THERE ARE LEFT-SIDED DISC EXTRUSION IS L4-L5 AND L5-S1, WITH MASS EFFECT UPON THE DESCENDING NERVE ROOTS, WITH MILD PROGRESSION COMPARED TO THE 2016 EXAMINATION. THE EXTRUDED COMPONENT NOTED ON CT AT L5-S1 IS NOT WELL APPRECIATED ON THE CURRENT EXAMINATION AND IS LIKELY ARTIFACTUAL.
[2018-02-12] MEDS ORDERED: Morphine INJ* 4 MG/ML 1 ML SYRINGE (NEW SYRINGE VERSION) IV ONE (22:28)
[2018-02-12] MEDS ORDERED: Lidocaine PATCH 5%* 1 PATCH TRANSDERM ONE (23:45)
[2018-02-12] MEDS ORDERED: O ndansetron ODT 4MG 2TAB PRPK 4 MG PAK PO ONE (23:56)
[2018-02-13 02:50] VITALS: BP 111/64
== END 2018-02-13 01:05 | disposition home or self-care (01) ==
LOC: ED 16:34
DX: M54.16 Radiculopathy, lumbar region (principal); M54.9 Dorsalgia, unspecified; F17.210 Nicotine dependence, cigarettes, uncomplicated; M51.34 Other intervertebral disc degeneration, thoracic region
CPT/HCPCS: 72131; 72148; 96374; 96375; 99282; J1100; J1885; J2270; J3360

== ENCOUNTER 2018-02-14 22:46 | Emergency (ER) | payer MEDICARE, MEDICAID ==
[2018-02-14] MEDS ORDERED: Methocarbamol* 100 MG/ML 10 ML VIAL IV ONE (23:49)
[2018-02-14] MEDS ORDERED: methylPREDNISolone 125 MG* 2 ML VIAL IV ONE (23:49)
[2018-02-14] MEDS ORDERED: HYDROmorphone INJ* 2 MG/ML CARPUJECT SYRINGE IV SLOW PU ONE (23:49)
[2018-02-14] MEDS ORDERED: Ketorolac INJ* 30 MG/ML 1 ML VIAL IV PUSH ONE (23:49)
[2018-02-15] MEDS ORDERED: HYDROmorphone INJ* 2 MG/ML CARPUJECT SYRINGE IV SLOW PU ONE (01:20)
[2018-02-15 02:38] VITALS: BP 102/66
--- NOTE | 2018-02-19 20:15 | ED ---
Jimmie Cazares Tecjoon, scribed for Wei Azevedo MD on 02/14/18 at 2351 . Back Pain - HPI Summary HPI Summary: This patient is a 42 year old female presenting to [facility] with a chief complaint of back pain since 3 days ago. Patient states she was helping lift something and felt her back pop. Patient states that the pain has been progressively getting worse. The pain is described as sharp and stabbing. The pain is rated 8/10 in severity. Symptoms aggravated by nothing. Symptoms alleviated by nothing. The patient treated sx with pain medication given at ED visit 2 days ago. Patient states that the meds do not help. Patient additionally reports numbness down her left leg. - History of Current Complaint Chief Complaint: EDBackInjuryPain Stated Complaint: BACK PAIN Time Seen by Provider: 02/14/18 23:38 Hx Obtained From: Patient Hx Last Menstrual Period: 2007 Onset/Duration: Sudden Onset, Still Present Onset/Duration: Started Days Ago Timing: Constant Severity Currently: Severe Pain Intensity: 8 Pain Scale Used: 0-10 Numeric Character: Sharp Aggravating Symptom(s): Nothing Alleviating Symptom(s): Nothing Associated Signs And Symptoms: Positive: Numbness - Allergies/Home Medications Allergies/Adverse Reactions: Allergies Allergy/AdvReac Type Severity Reaction Status Date / Time Adhesive Tape Allergy Unknown Verified 10/18/17 20:33 Reaction Details amitriptyline Allergy Altered Verified 01/08/18 11:06 Mental Status esomeprazole Allergy Unknown Verified 01/08/18 11:06 Reaction Details hydrocodone Allergy GI Upset Verified 01/08/18 11:06 kiwi Allergy Unknown Verified 01/08/18 11:06 Reaction Details NSAIDS (Non-Steroidal Allergy Unknown Verified 01/08/18 11:06 Anti-Inflamma Reaction Details oxycodone Allergy Hallucinati Verified 01/08/18 11:06 ons rabeprazole Allergy Unknown Verified 01/08/18 11:06 Reaction Details strawberry Allergy Unknown Verified 01/08/18 11:06 Reaction Details sucralfate [From Carafate] Allergy Anaphylatic Verified 01/08/18 11:06 Shock Sulfa (Sulfonamide Allergy Unknown Verified 01/08/18 11:06 Antibiotics) Reaction Details tramadol Allergy Nausea Verified 01/08/18 11:06 zolpidem [From Ambien] Allergy Hallucinati Verified 01/08/18 11:06 ons PMH/Surg Hx/FS Hx/Imm Hx Previously Healthy: No Endocrine/Hematology History: Reports: Hx Anemia Denies: Hx Diabetes Cardiovascular History: Denies: Hx Hypertension, Hx Pacemaker/ICD Respiratory History: Reports: Hx Chronic Bronchitis Denies: Hx Asthma GI History: Reports: Hx Gall Bladder Disease, Hx Gastroesophageal Reflux Disease , Hx Ulcer History: Denies: Hx Renal Disease Musculoskeletal History: Reports: Hx Back Problems Sensory History: Reports: Hx Contacts or Glasses Denies: Hx Hearing Aid Opthamlomology History: Reports: Hx Contacts or Glasses Neurological History: Reports: Hx Migraine Psychiatric History: Reports: Hx Anxiety, Hx Depression, Hx Bipolar Disorder Denies: Hx Panic Disorder - Cancer History Cancer Type, Location and Year: squamous cell rt arm in 2008 treated - Surgical History Surgery Procedure, Year, and Place: uterine ablation, gastric bypass 2006, 4 c- sections, gallbladder, right wrist surgery, tubal ligation Infectious Disease History: No Infectious Disease History: Denies: Traveled Outside the [place] in Last 30 Days - Family History Known Family History: Positive: Cardiac Disease, Seizure Disorder - Social History Alcohol Use: None Alcohol Amount: Sober since Nov 24 2013 Hx Substance Use: Yes Substance Use Type: Reports: Cocaine Substance Use Comment - Amount & Last Used: "quit" last used 08/27/17 Hx Tobacco Use: Yes Smoking Status (MU): Heavy Every Day Tobacco Smoker Type: Cigarettes Amount Used/How Often: 1 PPD Length of Time of Smoking/Using Tobacco: Since Age 14 Have You Smoked in the Last Year: Yes Review of Systems Negative: Fever Positive: Other - back pain Positive: Numbness - left leg All Other Systems Reviewed And Are Negative: Yes Physical Exam - Summary Physical Exam Summary: Appearance: Well-appearing, no distress, Well-nourished Skin: Warm, color reflects adequate perfusion Head: Normal Head/Face inspection Eyes: Conjunctiva clear ENT: Normal inspection Neck: Supple, no nodes, no JVD. Respiratory: Lungs clear, Normal breath sounds, no respiratory distress Cardio: RRR, No murmur, pulses normal, brisk capillary refill Abdomen: soft, nontender, no guarding, no rebound Bowel sounds: present Musculoskeletal: Mild midline lumbar spine tenderness, Moderate paravertebral lumbar spine tenderness, No swelling, no ecchymosis, Decreased sensation down left leg. Neuro: Alert, muscle tone normal, facial symmetry, speech normal, sensory/motor intact Psychological: Normal Triage Information Reviewed: Yes Vital Signs On Initial Exam: Initial Vitals Temp Pulse Resp BP Pulse Ox 97.8 F 97 16 115/69 99 02/14/18 22:57 02/14/18 22:57 02/14/18 22:57 02/14/18 22:57 02/14/18 22:57 Vital Signs Reviewed: Yes Diagnostics - Vital Signs Vital Signs Temp Pulse Resp BP Pulse Ox 02/14/18 22:57 97.8 F 97 16 115/69 99 - Laboratory Lab Statement: Any lab studies that have been ordered have been reviewed, and results considered in the medical decision making process. Re-Evaluation - Re-Evaluation First Eval Re-Evaluation Time: 01:19 Change: Improved Comment: Pt states her back pain has improved with IV analgesia. pt states now pain 5/10. Plan for repeat IV analgesia. will reevaluate Second Eval Re-Evaluation Time: 02:20 Change: Improved Comment: Pt states her back pain has improved. Pt with f/u appt in 1 days. Plan for symptomatic tx. Back Pain Course/Dx - Diagnoses Differential Diagnosis/HQI/PQRI: Positive: Aneurysm, Epidural Abscess, Herniated Disc, Neoplasm, Osteomyelitis, Osteoporosis Provider Diagnoses: Herniated disc Discharge - Sign-Out/Discharge Documenting (check all that apply): Discharge - Discharge Plan Condition: Improved Disposition: HOME Prescriptions: Methocarbamol TAB* [Robaxin 500 MG TAB*] 750 mg PO TID PRN #10 tab PRN Reason: Spasms Oxycodone HCl/Acetaminophen [Percocet 10-325 mg Tablet] 1 each PO Q6HR PRN #6 tablet MDD 4 tablets PRN Reason: Pain Patient Education Materials: Back Pain (ED) Referrals: Luis RICHEY,Phill Adame [Primary Care Provider] - Mariya Spencer MD [Medical Doctor] - 1 Day - Billing Disposition and Condition Condition: IMPROVED Disposition: HOME The documentation as recorded by the Jimmie choi Tecjoon accurately reflects the service I personally performed and the decisions made by me, Wei Azevedo MD.
== END 2018-02-15 02:36 | disposition home or self-care (01) ==
LOC: ED 22:46
DX: M51.24 Other intervertebral disc displacement, thoracic region (principal); M54.9 Dorsalgia, unspecified; F17.210 Nicotine dependence, cigarettes, uncomplicated
CPT/HCPCS: 96374; 96375; 99282; J1170; J1885; J2800; J2930

== ENCOUNTER 2019-06-08 07:35 | Emergency (ER) | payer MEDICAID, MEDICARE ==
--- OUTSIDE RECORDS SUMMARY | 2019-06-08 07:50 | XMS REPORT | Continuity of Care Document ---
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 Phill Smith PA Primary Care Physician Unavailable Payers Date Identification Numbers Payment Provider Subscriber Policy Number: [id number] Medicare Ximena Correia PayID: [id number] [address] [place] [address] Policy Number: [id number] Medicaid Ximena Correia PayID: [id number] [address] [place] [address] Policy Number: [id number] [employer] Ximena Correia PayID: [id number] [address] [place] [address] Problems Active Problems Provider Date Breast signs and symptoms Berto Ovalles MD Onset: 11/05/2012 Ganglion of joint Onset: 11/15/2003 Family History Date Family Member(s) Observation Comments Father Diabetes Mellitus Type 2 Father 69 Father Hepatitis Father parapalegic Mother Migraine Mother 64 Mother Depression Mother Anxiety Mother Thyroid Disease First Son Alive First Son 16 First Son Asthma First Son Attention Deficit Hyperactivity Disorder Second Son Alive Second Son 15 Second Son Seasonal Allergies Second Son Asthma First Brother Alive First Brother 38 First Brother Diabetes First Brother heart problems Social History Type Date Description Comments Sex Unknown Marital Status Patient is Lives With Alone Lives With Children Diet Patient follows no dietary restrictions Occupation Disabled 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 Tobacco Use Start: Unknown Current Cigarette Smoker x 20 yrs 1 Pack Daily ETOH Use Denies alcohol use Tobacco Use Start: Unknown End: Patient is a former smoker quit 02/07/16 Unknown Smoking Status Reviewed: 05/11/19 Patient is a former smoker quit 02/07/16 Exercise Type/Frequency Exercises sporadically Allergies, Adverse Reactions, Alerts Active Allergies Reaction Severity Comments Date Vicodin 03/11/2012 Percocet 03/11/2012 Aciphex 03/11/2012 Nexium 03/11/2012 Carafate 03/11/2012 Ambien 03/11/2012 Amitriptyline 03/11/2012 NSAIDs 03/11/2012 Zithromax 03/11/2012 Sulfa Drugs 03/11/2012 Strawberries 03/11/2012 Kiwi 03/11/2012 Medications Active Medications SIG Qnty Indications Ordering Date Provider Fluorometholone please apply 1 5ml H04.123 Ant Collins MD 05/11/2019 0.1% drop to both Suspension eyes 2 times daily for 2 weeks Artificial Tears instill 1 drop 15units H04.Ant Calderón MD 2016 1.4% in both eyes 4 Solution times a day Gabapentin 1 by mouth four Unknown 600mg Tablets times a day Acyclovir 1 tabl by mouth Unknown 400mg Tablets two times a day Lasix 1 by mouth Unknown 20mg Tablets every day Cyclobenzaprine HCL Take One Tablet Unknown 10mg By Mouth Three Tablets Times A Day as Needed History Medications Fluorometholone please apply 1 5ml H04.123 Ant Collins, 06/22/2018 - 0.1% drop to both eyes 05/11/2019 Suspension 3 times daily for 7 days Artificial Tears 1 drop both eyes 15ml H04.123 Ant Collins 03/19/2016 - 1-0.3% four times a day 06/22/2018 Solution Artificial Tears please apply a 7gm H04Ant Turner 03/19/2016 - 83-15% thin ribbon of 04/03/2017 Ointment lubricating ointment to both eyes at night Fluorometholone please apply 1 5ml H04.123 Ant Collins 03/19/2016 - 0.1% drop to both eyes 05/07/2016 Suspension twice daily for 7 days Fluorometholone please apply 1 5ml H04.123 Ant Collins 03/19/2016 - 0.1% drop to left eye 05/07/2016 Suspension three times daily for 5 days No Active Medications Unknown 12/22/2013 - 12/22/2013 Paliperidone ER 1 po qd Unknown - 6mg 05/11/2019 Tablets ER 24HR Childrens Chewable 4 po qd Unknown - Vitamins 05/11/2019 Chewtabs Vitamin B12 injection 1 per Unknown - month 05/07/2017 Calcium Citrate Unknown - Tablets 05/11/2019 Protonix 1 po qd 30tabs Unknown - 40mg Tablets 05/07/2017 Vitamin D3 1 po qd Unknown - 2000Unit 05/11/2019 Capsules Hydroxyzine HCL Unknown - 50mg 05/07/2017 Tablets Klonopin 1 po bid prn Unknown - 1mg Tablets 05/11/2019 Campral 2 po tid Unknown - 333mg Tablets 05/11/2019 Risperdal 1 by mouth hs 60tabs Unknown - 100mg Tablets 05/07/2017 Lexapro po qd 30tabs Unknown - 20mg Tablets 05/07/2017 Lamictal 1 po bid Unknown - 100mg Tablets 05/11/2019 Alprazolam prn Unknown - 0.25mg Tablets Unknown Cyclobenzaprine HCL prn Unknown - 5mg Unknown Tablets Vitamin B 12 injection q month Unknown - Lozenges Unknown Tramadol HCL 1 po as needed for 20tabs Unknown - 50mg Tablets pain Unknown Vital Signs Date Vital Result Comment 12/22/2013 2:00pm BP Systolic Sitting Left Arm 117 mmHg BP Diastolic Sitting Left Arm 69 mmHg Heart Rate 82 /min Height 63 inches 5'3" Weight 143.00 lb BMI (Body Mass Index) 25.3 kg/m2 BSA (Body Surface Area) 1.68 m2 11/05/2012 3:49pm BP Systolic Sitting Left Arm 118 mmHg BP Diastolic Sitting Left Arm 70 mmHg Body Temperature 97.9 F Height 63 inches 5'3" Weight 151.00 lb BMI (Body Mass Index) 26.7 kg/m2 03/11/2012 11:42am BP Systolic Sitting Right Arm 108 mmHg BP Diastolic Sitting Right Arm 65 mmHg Heart Rate 80 /min Respiratory Rate 20 /min Height 63.75 inches 5'3.75" Weight 153.00 lb BMI (Body Mass Index) 26.5 kg/m2 Procedures Date Code Description Status 05/11/2019 38351 Eye Exam Est Patient Comprehensive Completed 06/22/2018 35323 Eye Exam Est Patient Comprehensive Completed 05/07/2017 02088 Eye Exam Est Patient Comprehensive Completed 04/03/2016 64812 Close Lacrimal Punctum, Plug Completed 03/19/2016 58763 Eye Exam New Patient Comprehensive Completed 01/13/2014 [id number] Mammogram Completed 05/01/2011 [id number] Mammogram Completed 01/20/2007 69349 Fiberoptic Laryngoscopy,Diag. Completed Encounters Type Date Location Provider Dx Diagnosis Office Visit 05/07/2016 Ophthalmology Ant Collins H04.123 Dry eye syndrome 11:30a MD of bilateral lacrimal glands Office Visit 04/10/2016 Ophthalmology Ant Collins H04.123 Dry eye syndrome 11:30a MD of bilateral lacrimal glands Office Visit 04/03/2016 Ophthalmology Ant Collins, H04.123 Dry eye syndrome 10:45a MD of bilateral lacrimal glands Office Visit 06/06/2015 [facility], [facility], [address] 4:14p [facility] M.D. Disorder Not Elsewhere Spec V62.84 Suicidal Ideation Office Visit 05/02/2014 Surgical Office Berto Ovalles, 611.79 Breast Signs & 2:00p MD Symptoms Other Office Visit 12/22/2013 Surgical Office Berto Ovalles 611.79 Breast Signs & 1:45p MD Symptoms Other Office Visit 11/05/2012 Surgical Office Berto Ovalles 611.79 Breast Signs & 3:30p MD Symptoms Other Office Visit 03/11/2012 Surgical Office Manda 789.00 Pain Abdominal 11:30a [facility] Office Visit 01/20/2007 Operating Room Liam Colemna, 780.53 Hypersomnia W/ 8:00a [facility] Sleep Apnea Unspecified Plan of Treatment Future Appointment(s):05/12/2020 11:30 am - Ant Collins MD at [facility]/ 18/2019 - Ant Collins MDH04.123 Dry eye syndrome of bilateral lacrimal glandsNew Medication:Fluorometholone 0.1 % - please apply 1 drop to both eyes 2 times daily for 2 weeksComments:- eyes appear quite dry today- punctal plugs well-positioned- warm compresses: wash cloth with warm water twice daily- artificial tears both eyes: - preservative free tears 1 drop both eyes every 2 hours while awake- lubricating ointment at night - ointments include lacri- lube, systane, refresh pm- fml 0.1% 1 drop both eyes 3 times daily for 7 days- can consider restasis if refractory to above 1 month return visitFollow up:1 year exam; oct rnfl
[2019-06-08 07:59] VITALS: BP 129/98
--- NOTE | 2019-06-08 08:45 | UC ---
Hip/Pelvis Pain - HPI Summary HPI Summary: left hip pain x 1 day injury to her left hip as she stepped over her cat, felt a pop pain is sever 8 out of 10 , no radiation worse with waling and sitting, better with standing no numbness in her left lower ext - History Of Current Complaint Chief Complaint: UCLowerExtremity Stated Complaint: S/P FALL-HIP PAIN Time Seen by Provider: 06/08/19 08:06 Hx Obtained From: Patient Hx Last Menstrual Period: 2007 ?: No Onset/Duration: Sudden Onset, Lasting Days - 1, Still Present Timing: Constant Severity Initially: Severe Severity Currently: Severe Pain Intensity: 7 Character Of Pain: Aching Aggravating Factor(s): Movement Alleviating Factor(s): Rest, Position Associated Signs And Symptoms: Negative: Swelling, Redness, Bruising, Fever, Weakness, Dizziness, Syncope, Abdominal Pain, Knee Pain - Allergies/Home Medications Allergies/Adverse Reactions: Allergies Allergy/AdvReac Type Severity Reaction Status Date / Time Adhesive Tape Allergy Unknown Verified 06/08/19 08:00 Reaction Details amitriptyline Allergy Altered Verified 06/08/19 08:00 Mental Status esomeprazole Allergy Unknown Verified 06/08/19 08:00 Reaction Details hydrocodone Allergy GI Upset Verified 06/08/19 08:00 kiwi Allergy Unknown Verified 06/08/19 08:00 Reaction Details NSAIDS (Non-Steroidal Allergy Unknown Verified 06/08/19 08:00 Anti-Inflamma Reaction Details oxycodone Allergy Hallucinati Verified 06/08/19 08:00 ons rabeprazole Allergy Unknown Verified 06/08/19 08:00 Reaction Details strawberry Allergy Unknown Verified 06/08/19 08:00 Reaction Details sucralfate [From Carafate] Allergy Anaphylatic Verified 06/08/19 08:00 Shock Sulfa (Sulfonamide Allergy Unknown Verified 06/08/19 08:00 Antibiotics) Reaction Details zolpidem [From Ambien] Allergy Hallucinati Verified 06/08/19 08:00 ons PMH/Surg Hx/FS Hx/Imm Hx - Additional Past Medical History Additional PMH: chronic back pain skin cancer - Surgical History Surgical History: Yes Surgery Procedure, Year, and Place: uterine ablation, gastric bypass 2006, 4 c- sections, gallbladder, right wrist surgery, tubal ligation - Family History Known Family History: Positive: Cardiac Disease, Seizure Disorder - Social History Alcohol Use: None Alcohol Amount: Sober since Nov 24 2013 Substance Use Type: Cocaine Substance Use Comment - Amount & Last Used: "quit" last used 08/27/17 Smoking Status (MU): Heavy Every Day Tobacco Smoker Type: Cigarettes Amount Used/How Often: 1 PPD Length of Time of Smoking/Using Tobacco: Since Age 14 Have You Smoked in the Last Year: Yes When Did the Patient Quit Smoking/Using Tobacco: JANUARY 2016 Household Exposure Type: Cigarettes - Immunization History Most Recent Influenza Vaccination: Not the Season Most Recent Tetanus Shot: "I don't remember." Review of Systems All Other Systems Reviewed And Are Negative: Yes Constitutional: Positive: Negative Skin: Positive: Negative Eyes: Positive: Negative ENT: Positive: Negative Is Patient Immunocompromised?: No Physical Exam Triage Information Reviewed: Yes Appearance: Well-Appearing, No Pain Distress, Well-Nourished Vital Signs: Initial Vital Signs Temp 97.5 F 06/08/19 07:54 Pulse 99 06/08/19 07:54 Resp 16 06/08/19 07:54 BP 129/98 06/08/19 07:54 Pulse Ox 99 06/08/19 07:54 Vital Signs Reviewed: Yes Eye Exam: Normal Eyes: Positive: Conjunctiva Clear ENT: Positive: Normal ENT inspection, Hearing grossly normal, Pharynx normal Neck exam: Normal Neck: Positive: Supple, Nontender, No Lymphadenopathy Respiratory: Positive: Chest non-tender, Lungs clear, Normal breath sounds Cardiovascular: Positive: RRR, No Murmur, Pulses Normal Musculoskeletal: Positive: Other: - left hip: + severe tenderness lateral hip , no swelling, limited ROM on flexion , limited strength Diagnostics - Radiology No standard instances Radiology Interpretation Completed By: Radiologist Summary of Radiographic Findings: left hip xray report: Report: Normally located LEFT hip. No LEFT proximal femur or pelvis fracture or pelvic. joint diastases. Both hips demonstrate minimal osteophytic lipping without significant. joint space narrowing. Unremarkable soft tissue contours accounting for obese body. habitus. Pelvic surgical clips. Hip Injury Course/Dx - Differential Dx/Diagnosis Provider Diagnosis: Sprain of left hip Discharge - Sign-Out/Discharge Documenting (check all that apply): Patient Departure All imaging exams completed and their final reports reviewed: Yes - Discharge Plan Condition: Stable Disposition: HOME Patient Education Materials: Hip Sprain (ED) Referrals: Phill Smith PA [Primary Care Provider] - 7 Days - Billing Disposition and Condition Condition: STABLE Disposition: Home
== END 2019-06-08 08:53 | disposition home or self-care (01) ==
LOC: UCCORT 07:35
DX: S73.102A Unspecified sprain of left hip, initial encounter (principal); X50.0XXA Overexertion from strenuous movement or load, initial encounter; Y93.89 Activity, other specified; Y92.9 Unspecified place or not applicable; F17.210 Nicotine dependence, cigarettes, uncomplicated; Z85.828 Personal history of other malignant neoplasm of skin
CPT/HCPCS: 99211; G0463

== ENCOUNTER 2019-06-15 16:24 | Emergency (ER) | payer MEDICARE, OTHER ==
[2019-06-15 16:36] VITALS: BP 123/76
--- NOTE | 2019-06-15 16:40 | UC ---
Lower Extremity/Ankle HPI - HPI Summary HPI Summary: 44-year-old female who had the top part of a dresser fall onto her left lower leg. She states it kind of slid down the whole side of her leg. She has significant bruising however she states she has been elevating it and applying ice. She's not on any blood thinners. She has been ambulatory since then however because today it was more swollen or bruised she wanted it rechecked. Last tetanus is unknown and she refuses a tetanus immunization here. She does have a superficial abrasion to the lower portion of her left lateral leg. She would rather check with her primary care provider to see when she had one last. - History of Current Complaint Chief Complaint: UCLowerExtremity Stated Complaint: LEFT LEG INJURY Time Seen by Provider: 06/15/19 16:29 Hx Obtained From: Patient Hx Last Menstrual Period: NO MENSES ?: No Onset/Duration: Sudden Onset Severity Initially: Moderate Severity Currently: Moderate Pain Intensity: 8 Aggravating Factor(s): Ambulation Alleviating Factor(s): Rest Able to Bear Weight: Yes - Allergies/Home Medications Allergies/Adverse Reactions: Allergies Allergy/AdvReac Type Severity Reaction Status Date / Time Adhesive Tape Allergy Unknown Verified 06/15/19 16:31 Reaction Details amitriptyline Allergy Altered Verified 06/15/19 16:31 Mental Status esomeprazole Allergy Unknown Verified 06/15/19 16:31 Reaction Details hydrocodone Allergy GI Upset Verified 06/15/19 16:31 kiwi Allergy Unknown Verified 06/15/19 16:31 Reaction Details NSAIDS (Non-Steroidal Allergy Unknown Verified 06/15/19 16:31 Anti-Inflamma Reaction Details oxycodone Allergy Hallucinati Verified 06/15/19 16:31 ons rabeprazole Allergy Unknown Verified 06/15/19 16:31 Reaction Details strawberry Allergy Unknown Verified 06/15/19 16:31 Reaction Details sucralfate [From Carafate] Allergy Anaphylatic Verified 06/15/19 16:31 Shock Sulfa (Sulfonamide Allergy Unknown Verified 06/15/19 16:31 Antibiotics) Reaction Details zolpidem [From Ambien] Allergy Hallucinati Verified 06/15/19 16:31 ons PMH/Surg Hx/FS Hx/Imm Hx Previously Healthy: Yes GI/ History: Ulcer Cancer History: Other - Squamous cell carcinoma - Surgical History Surgical History: Yes Surgery Procedure, Year, and Place: uterine ablation, gastric bypass 2006, 4 c- sections, gallbladder, right wrist surgery, tubal ligation - Family History Known Family History: Positive: Cardiac Disease, Seizure Disorder - Social History Alcohol Use: None Alcohol Amount: Sober since Nov 24 2013 Substance Use Type: None Substance Use Comment - Amount & Last Used: "quit" last used 08/27/17 (COCAINE) Smoking Status (MU): Light Every Day Tobacco Smoker Type: Cigarettes Amount Used/How Often: 5 cigs/day Length of Time of Smoking/Using Tobacco: Since Age 14 Have You Smoked in the Last Year: Yes When Did the Patient Quit Smoking/Using Tobacco: JANUARY 2016 Household Exposure Type: Cigarettes - Immunization History Most Recent Influenza Vaccination: Not the 2016/2017 Season Most Recent Tetanus Shot: "I don't remember." Review of Systems All Other Systems Reviewed And Are Negative: Yes Skin: Positive: Bruising - Significant bruising to the lateral portion of left knee lower leg and ankle and foot. Motor: Positive: Negative Neurovascular: Positive: Negative Musculoskeletal: Positive: Negative Neurological: Positive: Negative Is Patient Immunocompromised?: No Physical Exam Triage Information Reviewed: Yes Appearance: Well-Appearing, No Pain Distress, Well-Nourished Vital Signs: Initial Vital Signs Temp 98.4 F 06/15/19 16:32 Pulse 106 06/15/19 16:32 Resp 20 06/15/19 16:32 BP 123/76 06/15/19 16:32 Pulse Ox 100 06/15/19 16:32 Vital Signs Reviewed: Yes Musculoskeletal: Positive: Strength Intact, ROM Intact, Other: - Good peripheral pulses neuro sensation capillary refill. Patient's left lower leg and ankle and foot are mildly swollen with significant bruising and tenderness on palpation mostly in the mid lateral tib-fib area. No deformity is noted. Neurological: Positive: Alert, Muscle Tone Normal Psychological Exam: Normal Skin: Positive: Other - Please see above notes. Lower Extremity Course/Dx - Course Course Of Treatment: Left tib-fib:FINDINGS: The soft tissues are unremarkable. The bone mineralization is within normal limits. No acute fractures identified. The joint spaces are well preserved. Anatomic alignment is maintained. IMPRESSION: No fracture or traumatic malalignment of the left tib-fib. - Differential Dx/Diagnosis Provider Diagnosis: Contusion of leg, left Discharge - Sign-Out/Discharge Documenting (check all that apply): Patient Departure All imaging exams completed and their final reports reviewed: Yes - Discharge Plan Condition: Fair Disposition: HOME Patient Education Materials: Contusion in Adults (ED) Referrals: Phill Smith PA [Primary Care Provider] - Richard Rodriguze MD [Medical Doctor] - Additional Instructions: Elevate as much as possible, follow-up with your primary care provider or orthopedist in 4 or 5 days if no improvement, ambulate as pain permits. Check with your primary care provider regarding your last tetanus immunization. - Billing Disposition and Condition Condition: FAIR Disposition: Home
== END 2019-06-15 18:30 | disposition home or self-care (01) ==
LOC: UCCORT 16:24
DX: S80.12XA Contusion of left lower leg, initial encounter (principal); W20.8XXA Other cause of strike by thrown, projected or falling object, initial encounter; Y92.9 Unspecified place or not applicable; Z85.828 Personal history of other malignant neoplasm of skin; F17.210 Nicotine dependence, cigarettes, uncomplicated
CPT/HCPCS: 99211; G0463